=== PATIENT | male | born 1945 | race Caucasian/White ===

== ENCOUNTER → 2019-01-30 | Outpatient (CLI) | payer MEDICARE, OTHER ==
[~2019-01-30] MED LIST: AMI25 PO; ASPI-1471 PO; CYA1000 PO; GADOBENATE 529MG/1ML 15ML VIAL IVP ONE; LEVO-3 PO; LOSA100T75 PO; NIFE-15 PO; NIFE60TA76 PO; PRA20 PO; VALS160T20 PO
--- NOTE | 2019-01-30 16:41 | RADIOLOGY IMAGING REPORT ---
[place] [facility] [place] NAME: Feliz Mcelroy : 1945 MR: [id number] V: [id number] EXAM DATE: ORDERING PHYSICIAN: MAX CHÁVEZ TECHNOLOGIST: Location: [facility] Patient: Feliz Mcelroy : 1945 Visit/Account:[id number] Date of Sevice: 01/30/2019 MR SHOULDER RT WITHOUT CONTRAST COMPARISON: None. HISTORY: Right shoulder pain for 3 months, no known injury, suspected rotator cuff tear. TECHNIQUE: Pre and postcontrast MRI of the right shoulder was requested however the patient could no t tolerate further scanning and refused the postcontrast images due to pain. Only noncontrast images were acquired. Included series include axial T1, axial STIR, axial T1 fat-saturated images, sagittal T1 and coronal T2 fat saturated images of the right shoulder. CONTRAST: None. FINDINGS: ROTATOR CUFF: Moderate supraspinatus tendinosis with mild partial-thickness interstitial tearing in t he distal tendon and with a partial-thickness bursal sided fraying of the tendon at the insertion. Th e rest of the rotator cuff tendons are intact and unremarkable. No muscle atrophy or edema. BICEPS: The long head of biceps tendon is normal in caliber and signal. The extra-articular segment is normally positioned within the intertubercular sulcus. FLUID/BURSA: There is no glenohumeral effusion. Mild subacromial/subdeltoid bursitis. GLENOHUMERAL JOINT: Mild posterior glenoid spurring consistent with osteoarthritis. Lack of fluid in the joint and arthrogram technique limits assessment for subtle labral pathology. There is no con vincing noncontrast MR evidence for a labral tear. AC JOINT: Mild degenerative edema and subchondral cyst formation at the AC joint, without significan t proliferative changes. Type II acromion without subacromial spur or os acromiale. BONES: Otherwise normal marrow signal and alignment. Mild chronic Hill-Sachs impaction deformity of the humeral head without associated osseous Bankart deformity. Glenohumeral alignment is normal. OTHER: Negative. IMPRESSION: 1. Moderate right supraspinatus tendinosis with mild partial-thickness interstitial tearing of the d istal tendon and superimposed bursal sided fraying of the tendon at the insertion. 2. Mild subacromial/subdeltoid bursitis. 3. 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 4. Mild chronic Hill-Sachs impaction deformity of the humeral head consistent with sequela of remote dislocation. Normal glenohumeral alignment at the time of scanning. 5. Pre and postcontrast study was requested that the patient could not tolerate postcontrast imaging because of pain. On the noncontrast series were acquired. Report Dictated By: Klaus Parker at 01/30/2019 4:29 PM Report E-Signed By: Klaus Parker at 01/30/2019 4:38 PM WSN:[id number]
== END ==
LOC: MRI 12:32
PROVIDERS: ATTEND Obstetrics & Gynecology Gynecology
DX: M75.91 Shoulder lesion, unspecified, right shoulder (principal); M75.51 Bursitis of right shoulder; M19.011 Primary osteoarthritis, right shoulder; M25.811 Other specified joint disorders, right shoulder
CPT/HCPCS: 73221; A9577